=== PATIENT | male | born 2005 | race Caucasian/White ===

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

== ENCOUNTER 2025-02-19 21:55 | Emergency (ER) | payer MEDICAID ==
[2025-02-19 23:54] VITALS: BP 137/89; PULSE 92
== END 2025-02-20 00:15 | disposition home or self-care (01) ==
LOC: JP.ED 21:55
DX: J02.8 Acute pharyngitis due to other specified organisms (principal); J45.909 Unspecified asthma, uncomplicated; Z86.16 Personal history of COVID-19
CPT/HCPCS: 87651; 99283